=== PATIENT | female | born 1975 | race Caucasian/White ===

== ENCOUNTER 2019-12-27 15:37 | Emergency (ER) | payer BC ==
[~2019-12-27] VITALS: Ht 157.5 cm; Wt 80.0 kg
[~2019-12-27 15:37] MED LIST: PANT40TA77 PO; SUCR1TAB35 PO
[2019-12-27 15:54] VITALS: BP 123/59
[2019-12-27] MEDS ORDERED: ORPH100T PO (16:18)
--- NOTE | 2019-12-27 16:19 | PHYS DOC ---
Past Medical History Past Medical History: No Pertinent History (KRISTIAN BEYER SPECIAL EFFECTS SPECIALIST) Past Surgical History: , Other Additional Past Surgical Histo: ABLASION (KRISTIAN BEYER SPECIAL EFFECTS SPECIALIST) Smoking Status: Current Every Day Smoker Alcohol Use: None Drug Use: None (KRISTIAN BEYER APRN) Adult General Chief Complaint Chief Complaint: BACK PAIN OR INJURY HPI HPI Patient is a 44 year old Female who presents with states she is bending over while she was doing laundry and felt her back began to spasm and tightness up. She states that it is aching and sharp at radiates up her back bilaterally. Patient rates her pain 9 out of 10. Patient states she took Tylenol prior to arrival. Patient denies numbness or tingling, loss of bowel or bladder, saddle paresthesia, headache, dizziness. (KRISTIAN BEYER APRN) Review of Systems Review of Systems Musculoskeletal:Bilateral low back pain or joint pain [] All other systems were reviewed and found to be within normal limits, except as documented in this note. (KRISTIAN BEYER APRN) Allergies Allergies Allergies Coded Allergies Type Severity Reaction Last Updated Verified latex Allergy Intermediate 10/29/16 Yes (SAJAN STARKEY MD) Physical Exam Physical Exam Constitutional: Well developed, well nourished, no acute distress, non-toxic appearance. [] HENT: Normocephalic, atraumatic, bilateral external ears normal, oropharynx moist, no oral exudates, nose normal. [] Eyes: PERRLA, EOMI, conjunctiva normal, no discharge. [] Neck: Normal range of motion, no tenderness, supple, no stridor. [] Cardiovascular:Heart rate regular rhythm, no murmur [] Lungs & Thorax: Bilateral breath sounds clear to auscultation [] Abdomen: Bowel sounds normal, soft, no tenderness, no masses, no pulsatile masses. [] Skin: Warm, dry, no erythema, no rash. [] Back: Right low back tenderness, no CVA tenderness. [] Extremities: No tenderness, no cyanosis, no clubbing, ROM intact, no edema. [] Neurologic: Alert and oriented X 3, normal motor function, normal sensory function, no focal deficits noted. [] Psychologic: Affect normal, judgement normal, mood normal. [] (KRISTIAN BEYER APRN) Current Patient Data Vital Signs Vital Signs Date Time Temp Pulse Resp B/P (MAP) Pulse Ox O2 Delivery O2 Flow Rate FiO2 12/27/19 15:54 98.2 62 16 123/59 (80) 100 Room Air 98.2 (SAJAN STARKEY MD) EKG EKG [] (KRISTIAN BEYER APRN) Radiology/Procedures Radiology/Procedures [] (KRISTIAN BEYER APRN) Course & Med Decision Making Course & Med Decision Making Pertinent Labs and Imaging studies reviewed. (See chart for details) Ambulatory with a steady gait. Speaks in full clear sentences. Skin pink warm and dry. Vital signs within normal limits. Slight tenderness to the left lower back. No CVA tenderness. She is currently on antibiotic for a urinary tract infection. Afebrile. Denies any nausea or vomiting. PERRLA. Moves all these equally and with equal strengths. No focal evy spinal tenderness. [] (KRISTIAN BEYER APRN) Course & Med Decision Making Staff Physician Addendum: I was working in the ER during the course of this patient's visit. I was available for consultation as needed, but I was not directly involved in the care of this patient. (SAJAN STARKEY MD) Dragon Disclaimer Dragon Disclaimer This electronic medical record was generated, in whole or in part, using a voice recognition dictation system. (KRISTIAN BEYER APRN) Departure Departure Impression: Primary Impression: Back pain Disposition: 01 HOME, SELF-CARE Condition: STABLE Referrals: NO PCP (PCP) Patient Instructions: Low Back Strain with Rehab-SportsMed Additional Instructions: Follow up with primary care provider. Take all medications as prescribed. Drink plenty of water. Try using a heating pad and also Take Ibuprofen to help with pain. Scripts Orphenadrine Citrate (ORPHENADRINE CITRATE) 100 Mg Tablet.er 1 TAB PO BID, #20 TAB Prov: KRISTIAN BEYER APRN 12/27/19 Problem Qualifiers Primary Impression: Back pain Back pain location: low back pain Chronicity: acute Back pain laterality: bilateral Sciatica presence: without sciatica Qualified Codes: M54.5 - Low back pain KRISTIAN BEYER APRN Dec 27, 2019 16:19 SAJAN STARKEY MD Dec 28, 2019 07:12
== END 2019-12-27 16:33 | disposition home or self-care (01) ==
LOC: ER 15:37
DX: M54.5 Low back pain (principal); F17.200 Nicotine dependence, unspecified, uncomplicated; Z98.890 Other specified postprocedural states; Z91.040 Latex allergy status
CPT/HCPCS: 99283

== ENCOUNTER 2021-05-05 21:26 | Emergency (ER) | payer BC ==
[~2021-05-05] VITALS: Ht 157.5 cm; Wt 96.4 kg
[~2021-05-05 21:26] MED LIST changes: +ORPH100T PO
--- NOTE | 2021-05-05 22:52 | PHYS DOC ---
Past Medical History Past Medical History: Other Additional Past Medical Histor: +COVID ANTIBODIES 10/2020 Past Surgical History: , Other Additional Past Surgical Histo: ABLASION Smoking Status: Former Smoker Alcohol Use: None Drug Use: None General Adult EDM: Chief Complaint: MULTIPLE COMPLAINTS HPI: HPI: Patient is a 45 year old female who present to ER due to sore throat and hea dache since earlier today. Patient denies any cough, she denies any fever. Patient said her throat hurt when she is trying to swallow. Patient denies any neck pain, no neck stiffness. Abdominal pain, no nausea vomiting. Review of Systems: Review of Systems: Constitutional: Denies fever or chills. [] Eyes: Denies change in visual acuity. [] HENT: Denies nasal congestion, positive sore throat Respiratory: Denies cough or shortness of breath. [] Cardiovascular: Denies chest pain or edema. [] GI: Denies abdominal pain, nausea, vomiting, bloody stools or diarrhea. [] : Denies dysuria. [] Musculoskeletal: Denies back pain or joint pain. [] Integument: Denies rash. [] Neurologic: Positive headache, no focal weakness or sensory changes. [] Endocrine: Denies polyuria or polydipsia. [] Lymphatic: Denies swollen glands. [] Psychiatric: Denies depression or anxiety. [] Heart Score: C/O Chest Pain: N/A Risk Factors: Risk Factors: DM, Current or recent (<one month) smoker, HTN, HLP, family history of CAD, obesity. Risk Scores: Score 0 - 3: 2.5% MACE over next 6 weeks - Discharge Home Score 4 - 6: 20.3% MACE over next 6 weeks - Admit for Clinical Observation Score 7 - 10: 72.7% MACE over next 6 weeks - Early Invasive Strategies Current Medications: Current Medications Medications (Trade) Dose Ordered Sig/Dedra Start Time Stop Time Status Last Admin Dose Admin Amoxicillin (Amoxil) 500 mg 1X ONCE 05/05/21 23:00 05/05/21 23:01 Allergies: Allergies: Allergies Coded Allergies Type Severity Reaction Last Updated Verified latex Allergy Intermediate 10/29/16 Yes Physical Exam: PE: Constitutional: Well developed, well nourished, no acute distress, non-toxic appearance. [] HENT: Normocephalic, atraumatic, bilateral external ears normal, oropharynx moist and erythema, exudation on the right side of the tonsil, tonsillar hypertrophy bilaterally, uvula midline nose normal. [] Eyes: PERRLA, EOMI, conjunctiva normal, no discharge. [] Neck: Normal range of motion, no tenderness, supple, no stridor. [] Cardiovascular:Heart rate regular rhythm, no murmur [] Lungs & Thorax: Bilateral breath sounds clear to auscultation [] Abdomen: Bowel sounds normal, soft, no tenderness, no masses, no pulsatile masses. [] Skin: Warm, dry, no erythema, no rash. [] Back: No tenderness, no CVA tenderness. [] Extremities: No tenderness, no cyanosis, no clubbing, ROM intact, no edema. [] Neurologic: Alert and oriented X 3, normal motor function, normal sensory function, no focal deficits noted. [] Psychologic: Affect normal, judgement normal, mood normal. [] Current Patient Data: Labs: Laboratory Tests Test 05/05/21 21:59 POC Urine HCG, Qualitative Hcg negative (Negative) Vital Signs: Vital Signs Date Time Temp Pulse Resp B/P (MAP) Pulse Ox O2 Delivery O2 Flow Rate FiO2 05/05/21 22:06 98.7 105 16 127/60 (82) 96 Room Air 98.7 EKG: EKG: [] Radiology/Procedures: Radiology/Procedures: [] Course & Med Decision Making: Course & Med Decision Making Pertinent Labs and Imaging studies reviewed. (See chart for details) Patient was tested positive for rapid strep test in the ER. Patient will be discharged home with a prescription for amoxicillin three times a day, 500 mg for 10 days Dragon Disclaimer: [place] Disclaimer: This electronic medical record was generated, in whole or in part, using a voice recognition dictation system. Departure Departure Impression: Primary Impression: Strep pharyngitis Disposition: HOME / SELF CARE / HOMELESS Condition: STABLE Referrals: CJ GREGORIO DO (PCP) follow up with your doctor as needed Patient Instructions: Viral and Bacterial Pharyngitis Additional Instructions: Thank you for visiting our Emergency Department. We appreciate you trusting us with your care. If any additional problems come up don't hesitate to return to visit us. Please follow up with your primary care provider so they can plan additional care if needed and know about the problem that you had. If symptoms worsen come back to the Emergency Department. Any concerning symptoms that start such as chest pain, shortness of air, weakness or numbness on one side of the body, running high fevers or any other concerning symptoms return to the ER. Scripts Amoxicillin (AMOXICILLIN) 500 Mg Capsule 1 CAP PO TID, #30 CAP Prov: RAFAELA STREETER DO 05/05/21 RAFAELA STREETER DO May 05, 2021 22:52
[2021-05-05] MEDS ORDERED: AMOX500C PO (22:57)
[2021-05-05] MEDS ORDERED: AMOXICILLIN 250 MG CAPSULE. PO ONE (23:00)
[2021-05-05 23:04] VITALS: BP 103/55
== END 2021-05-05 23:09 | disposition home or self-care (01) ==
LOC: ER 21:26
DX: J02.0 Streptococcal pharyngitis (principal); B95.0 Streptococcus, group A, as the cause of diseases classified elsewhere; Z20.822 Contact with and (suspected) exposure to COVID-19; R51.9 Headache, unspecified
CPT/HCPCS: 81025; 87880; 99283; U0003; U0005

== ENCOUNTER 2022-01-14 03:37 | Emergency (ER) | payer BC ==
[~2022-01-14] VITALS: Ht 157.5 cm; Wt 91.8 kg
[~2022-01-14 03:37] MED LIST changes: +AMOX500C PO
--- NOTE | 2022-01-14 04:05 | ED.ADGEN ---
Past Medical History Past Medical History: Other Additional Past Medical Histor: +COVID ANTIBODIES 10/2020 Past Surgical History: , Other Additional Past Surgical Histo: ABLASION Smoking Status: Former Smoker Alcohol Use: None Drug Use: None General Adult EDM: Chief Complaint: ALLERGIC REACTION HPI: HPI: Patient is a 46 year old female coming in for concern for allergic reaction af ter taking Tamiflu. Patient states she is diagnosed influenza a 2.5 days ago and started on Tamiflu. Patient states that she had some small blisters on her right upper and lower left side of her lips. Taking [id number] canker sore medicine without improvement. Patient states she also is having difficulty urinating but has had decreased p.o. intake. Denies any dysuria or urgency. Review of Systems: Review of Systems: Constitutional: Denies fever or chills. [] Eyes: Denies change in visual acuity. [] HENT: Denies nasal congestion or sore throat. [] Respiratory: Denies cough or shortness of breath. [] Cardiovascular: Denies chest pain or edema. [] GI: Denies abdominal pain, nausea, vomiting, bloody stools or diarrhea. [] : Denies dysuria. [] Musculoskeletal: Denies back pain or joint pain. [] Integument: Denies rash. [] Neurologic: Denies headache, focal weakness or sensory changes. [] Endocrine: Denies polyuria or polydipsia. [] Lymphatic: Denies swollen glands. [] Psychiatric: Denies depression or anxiety. [] Allergies: Allergies: Allergies Coded Allergies Type Severity Reaction Last Updated Verified latex Allergy Intermediate 10/29/16 Yes Physical Exam: PE: Constitutional: Well developed, well nourished, no acute distress, non-toxic appearance. [] HENT: Normocephalic, atraumatic, bilateral external ears normal, oropharynx moist, no oral exudates, nose normal. [] Eyes: PERRLA, EOMI, conjunctiva normal, no discharge. [] Neck: Normal range of motion, no tenderness, supple, no stridor. [] Cardiovascular:Heart rate regular rhythm, no murmur [] Lungs & Thorax: Bilateral breath sounds clear to auscultation [] Abdomen: Bowel sounds normal, soft, no tenderness, no masses, no pulsatile masses. [] Skin: Warm, dry, no erythema, no rash. [] Back: No tenderness, no CVA tenderness. [] Extremities: No tenderness, no cyanosis, no clubbing, ROM intact, no edema. [] Neurologic: Alert and oriented X 3, normal motor function, normal sensory function, no focal deficits noted. [] Psychologic: Affect normal, judgement normal, mood normal. [] Current Patient Data: Labs: Laboratory Tests Test 01/14/22 04:30 Urine Collection Type U cath Urine Color Red Urine Clarity Turbid Urine pH (<5.0-8.0) Urine Specific [place] (1.000-1.030) Urine Protein mg/dL (NEG-TRACE) Urine Glucose (UA) mg/dL (NEG) Urine Ketones (Stick) mg/dL (NEG) Urine Blood (NEG) Urine Nitrite (NEG) Urine Bilirubin (NEG) Urine Urobilinogen Dipstick mg/dL (0.2 mg/dL) Urine Leukocyte Esterase (NEG) Urine RBC Tntc /HPF (0-2) Urine WBC 11-20 /HPF (0-4) Urine Squamous Epithelial Cells Mod /LPF Urine Bacteria 0 /HPF (0-FEW) Urine Mucus Mod /LPF Urine Opiates Screen Neg (NEG) Urine Methadone Screen Neg (NEG) Urine Barbiturates Neg (NEG) Urine Phencyclidine Screen Neg (NEG) Urine Amphetamine/Methamphetamine Neg (NEG) Urine Benzodiazepines Screen Neg (NEG) Urine Cocaine Screen Neg (NEG) Urine Cannabinoids Screen Neg (NEG) Urine Ethyl Alcohol Neg (NEG) Vital Signs: Vital Signs Date Time Temp Pulse Resp B/P (MAP) Pulse Ox O2 Delivery O2 Flow Rate FiO2 01/14/22 03:49 98.4 75 16 122/69 (86) 100 Room Air 98.4 EKG: EKG: [] Heart Score: C/O Chest Pain: No Risk Factors: Risk Factors: DM, Current or recent (<one month) smoker, HTN, HLP, family history of CAD, obesity. Risk Scores: Score 0 - 3: 2.5% MACE over next 6 weeks - Discharge Home Score 4 - 6: 20.3% MACE over next 6 weeks - Admit for Clinical Observation Score 7 - 10: 72.7% MACE over next 6 weeks - Early Invasive Strategies Radiology/Procedures: Radiology/Procedures: [] Course & Med Decision Making: Course & Med Decision Making Pertinent Labs and Imaging studies reviewed. (See chart for details) [] Dragon Disclaimer: Dragon Disclaimer: This electronic medical record was generated, in whole or in part, using a voice recognition dictation system. Departure Departure Impression: Primary Impression: UTI (urinary tract infection) Disposition: HOME / SELF CARE / HOMELESS Condition: STABLE Referrals: CJ GREGORIO DO (PCP) Patient Instructions: Urinary Tract Infection Scripts Cephalexin (CEPHALEXIN) 500 Mg Tablet 1 TAB PO TID for antibiotic for 7 Days, #21 TAB Prov: ESE ALLISON MD 01/14/22 ESE ALLISON MD Jan 14, 2022 04:04
[2022-01-14 04:40] LABS: CLARITY,URINE TURBID; COLOR,URINE RED
[2022-01-14 04:42] LABS: RBC,URINE TNTC /HPF (0-2)
[2022-01-14 04:46] LABS: BACTERIA,URINE 0 /HPF (0-FEW)
[2022-01-14 04:55] VITALS: BP 123/73
[2022-01-14 04:56] LABS: BARBITURATES NEG (NEG); BENZODIAZEPINES NEG (NEG); CANNABINOIDS NEG (NEG); COCAINE NEG (NEG); METHADONE NEG (NEG); OPIATES NEG (NEG); PHENCYCLIDINE NEG (NEG)
[2022-01-14 04:58] LABS: AMPHETAMINE/METHAMPHETAMINE NEG (NEG)
[2022-01-14] MEDS ORDERED: CEPH500T PO (05:08)
== END 2022-01-14 05:18 | disposition home or self-care (01) ==
LOC: ER 03:37
DX: N39.0 Urinary tract infection, site not specified (principal); Z87.891 Personal history of nicotine dependence; Z91.040 Latex allergy status
CPT/HCPCS: 51701; 80307; 81001; 87086; 99283